=== PATIENT | female | born 1950 | race Caucasian/White ===

== ENCOUNTER 2016-07-03 10:46 | Emergency (ER) | payer BC ==
[2016-07-03 11:34] VITALS: BP 148/80
--- NOTE | 2016-07-03 11:42 | UC ---
Latanya Wood SooYoung, scribed for [facility] MD on 07/03/16 at 1055 . Throat Pain/Nasal Moreno HPI - HPI Summary HPI Summary: IN ROOM NOTE: A 65 y/o F presents to [facility] [place] with c/o sudden onset sore throat beginning 6 days ago. Associated sx: SU, cough, as well as ear pain and subjective fever onset this AM, since resolved. Episode of feeling feverish lasted approx 15 minutes while at [facility]. Denies: dizziness, CP, SOB, pain with swallowing, sinus pressure/congestion, abd pain, urinary sx. Pt has been babysitting her grandson this past week, and says her daughter and son-in-law are both currently ill. NOTE: Vital signs stable. Temp 99.1. BP: 131/74. Pulse ox: 100. Non-smoker; PMHx: MS, osteoporosis, HTN. NURSE'S NOTE: SICK FOR 1 WEEK. CAME ON SUDDENLY WITH HORRIBLE HEADACHE AND SORE THROAT. FEELS IT GOING INTO BOTH EARS BUT SEEMS TO HAVE SELF RESOLVED NOW. NO SIGNIFICANT HX OF URIs OR SINUS INFECTIONS. [ End ] - History of Current Complaint Stated Complaint: SORE THROAT FEVER COUGH Hx Obtained From: Patient Onset/Duration: Sudden Onset, Lasting Hours, Lasting Days, Still Present, Resolved Severity: Mild Pain Intensity: 0 Pain Scale Used: 0-10 Numeric Associated Signs & Symptoms: Positive: Fever - subjective - Allergies/Home Medications Allergies/Adverse Reactions: Allergies Allergy/AdvReac Type Severity Reaction Status Date / Time Meclizine [From Antivert] Allergy Intermediate Nausea Verified 07/03/16 10:53 PMH/Surg Hx/FS Hx/Imm Hx Previously Healthy: No Endocrine History Of: Denies: Diabetes Cardiovascular History Of: Reports: Hypertension - TREATED WITH MEDS Denies: Pacemaker/ICD GI/ History Of: Denies: Renal Disease Neurological History Of: Denies: Migraine Cancer History Of: Denies: Breast Cancer - Surgical History Surgical History: Yes Surgery Procedure, Year, and Place: TONSILECTOMY. 2 - C SECTIONS. LAPAROSCOPY - Family History Known Family History: Positive: Hypertension, Diabetes, Other - POS: BREAST CA - Social History Occupation: Retired Lives: Alone Smoking Status (MU): Never Smoked Tobacco Review of Systems Constitutional: Fever - subjective, felt hot ENT: Sore Throat, Ear Ache Respiratory: Cough Neurological: Headache All Other Systems Reviewed And Are Negative: Yes Physical Exam Triage Information Reviewed: Yes Appearance: Well-Appearing, No Pain Distress, Well-Nourished Vital Signs: Initial Vital Signs Temp 99.1 F 07/03/16 10:55 Pulse 88 07/03/16 10:55 Resp 16 07/03/16 10:55 BP 131/74 07/03/16 10:55 Pulse Ox 100 07/03/16 10:55 Vital Signs Reviewed: Yes Eyes: Positive: Conjunctiva Clear ENT: Positive: Hearing grossly normal, Pharynx normal, TMs normal. Negative: Muffled/hoarse voice Neck: Positive: Supple, No Lymphadenopathy Respiratory: Positive: Chest non-tender, Lungs clear, Normal breath sounds, No respiratory distress Cardiovascular: Positive: RRR, No Murmur Abdomen Description: Positive: Nontender, Soft Bowel Sounds: Positive: Present Musculoskeletal: Positive: Strength Intact, Other: - MEDRANO Neurological: Positive: Alert Psychological: Positive: Age Appropriate Behavior Skin: Negative: rashes Throat Pain/Nasal Course/Dx - Course Course Of Treatment: A 65 y/o F with history of MS, well-controlled, and no history of migraines, presents with what sounds like a brief one week hx of URI. This AM for roughly 15 minutes, pt had a SU. She has vague complaints of sore throat and congestion that at the time of her examination were resolved. Specifically, during her episode, she had no CP, SOB, n/v. Her temp is 99.1 and her BP is slightly elevated but she is on Lisinopril. Her pulse ox is nml. According to nurse, pt is under significant recent stress. Medications have been included in the original chart and reviewed. Rapid strep test is negative. No orthostatic vital changes. - Differential Dx/Diagnosis Differential Diagnosis/HQI/PQRI: Sinusitis, URI, Other - vs. viral syndrome vs anxiety Provider Diagnoses: 1. Upper Respiratory Infection, resolving. 2. Possible vasovagal episode. Discharge - Discharge Plan Condition: Stable Disposition: HOME Patient Education Materials: Upper Respiratory Infection (ED) Referrals: Chary Salinas MD [Primary Care Provider] - Additional Instructions: WE DISCUSSED: 1. Your episode in [facility] this morning is probably related to your ongoing upper respiratory viral infection that will get better over the next week. Sometimes you can have a momentary change in pulse and blood pressure caused by various environmental factors (heat, crowd, anxiety, etc.) that can cause a feeling of heat and a headache. Your examination today in the [facility] was normal. 2. Your blood pressure and pulse readings were within normal limits when you changed position. Your strep test was negative. 3. Increase fluids; use steam or hot shower to clean out any continued congestion in your head or chest. 4. Re check at any time for a repeat episode. Ear Complaint - History of Current Complaint Chief Complaint: UCRespiratory Time Seen by Provider: 07/03/16 10:57 - Allergies/Home Medications Allergies/Adverse Reactions: Allergies Allergy/AdvReac Type Severity Reaction Status Date / Time Meclizine [From Antivert] Allergy Intermediate Nausea Verified 07/03/16 10:53 Lab Results - Lab Results Lab Results: 07/03/16 11:06 Group A Strep Rapid Negative The documentation as recorded by the Latanya turcios SooYoung accurately reflects the service I personally performed and the decisions made by me, Brian Neff MD.
== END 2016-07-03 11:39 | disposition home or self-care (01) ==
LOC: UCEAST 10:46
DX: J06.9 Acute upper respiratory infection, unspecified (principal); I10 Essential (primary) hypertension
CPT/HCPCS: 87651; 99212; G0463

== ENCOUNTER 2017-07-25 15:47 | Emergency (ER) | payer MEDICARE ==
[2017-07-25 17:24] VITALS: BP 00/00
== END 2017-07-25 17:22 | disposition left against medical advice (07) ==
LOC: ED 15:47
DX: R42 Dizziness and giddiness (principal); R51 Headache; M54.9 Dorsalgia, unspecified; Z53.21 Procedure and treatment not carried out due to patient leaving prior to being seen by health care provider